=== PATIENT | female | born 1935 | race African-American/Black ===

== ENCOUNTER 2021-03-17 09:31 | Observation (INO) ==
[2021-03-17 11:02] LABS: Basophils % 0.2 % (0.0-0.8); Eosinophils % 0.1 % (0.00-10.9); Hematocrit 28.6 VOL% (35.7-47.0); Immature Granulocytes % 0.3 %; Immature Granulocytes Absolute 0.03 #; Lymphocytes # 0.7 10*3/uL (1.4-4.0); Lymphocytes % 7.5 % (21.3-54.2); Mean Corpuscular HGB Conc 31.5 GM/DL (32-36); Mean Corpuscular Volume 74.7 FL (87-102); Neutrophils % 86.9 % (38.7-73.9); Platelet Count 318 T/CUMM (130-400); Red Blood Count 3.83 MC/CUMM (3.8-5.5); Red Cell Distribution Width 17.1 % (9.3-17.3); White Blood Count 8.6 T/CUMM (4-12)
[2021-03-17 11:03] LABS: Bacteria,Urine Occasional /HPF (Few); Bilirubin,Urine Negative (Negative); Blood, Urine Negative (Negative); Glucose,Urine (UA) Negative (Negative); Ketones,Urine 5 mg/dL (Negative); Mucus,Urine Few /LPF (Occasional); Nitrite,Urine Negative (Negative); Protein,Urine 30 MG/DL; RBC,Urine 11 /HPF (0-4); Squamous Epithelial Cell,Urine Occasional /HPF (0-10); Urine Appearance CLOUDY (Clear); Urine Color Yellow (Yellow); Urine Specific Gravity 1.017 (1.001-1.035); Urine Urobilinogen < 2.0 EU/DL (<2.0)
[2021-03-17] MEDS ORDERED: cefTRIAXone 1,000 MG in SODIUM CHLORIDE 0.9% 100 ML IV STA (11:06)
[2021-03-17 11:33] LABS: Albumin 3.7 G/DL (3.4-5.0); Bilirubin,Total 0.6 MG/DL (0.20-1.00); Calcium 9.8 MG/DL (8.5-10.1); Osmolality,Calculated 284.4 MOS/KG (273-304); Potassium 4.4 MMOL/L (3.5-5.1); Total Protein 7.5 G/DL (6.4-8.2)
[2021-03-17] MEDS ORDERED: SODIUM CHLORIDE 0.9% 1,000 ML IV STA (11:38)
[2021-03-17] MEDS ORDERED: DEXTROSE 10% 250 ML BAG IV PRN (12:57)
[2021-03-17] MEDS ORDERED: ONDANSETRON 4 MG/2 ML VIAL IV PRN (12:57)
[2021-03-17] MEDS ORDERED: hydrALAZINE 20 MG/1 ML VIAL IV PRN (12:57)
[2021-03-17] MEDS ORDERED: GLUCAGON 1 MG VIAL IM PRN (12:57)
[2021-03-17] MEDS: SODIUM CHLORIDE 0.45% 1,000 ML IV SCH (19:03)
[2021-03-18] MEDS: SODIUM CHLORIDE 0.45% 1,000 ML IV SCH ×2 (02:41→12:30)
[2021-03-18 06:50] LABS: Basophils % 0.3 % (0.0-0.8); Eosinophils # 0.3 10*3/uL (0.0-0.87); Eosinophils % 3.1 % (0.00-10.9); Hematocrit 30.4 VOL% (35.7-47.0); Hemoglobin 9.4 GM/DL (12.0-16.0); Immature Granulocytes % 0.3 %; Immature Granulocytes Absolute 0.03 #; Lymphocytes # 1.2 10*3/uL (1.4-4.0); Lymphocytes % 13.2 % (21.3-54.2); Mean Corpuscular HGB Conc 30.9 GM/DL (32-36); Mean Corpuscular Volume 75.2 FL (87-102); Mean Platelet Volume 10.3 FL (9.6-12.0); Monocytes % 8.5 % (1.7-12.7); Neutrophils % 74.6 % (38.7-73.9); Platelet Count 287 T/CUMM (130-400); Red Blood Count 4.04 MC/CUMM (3.8-5.5); Red Cell Distribution Width 17.2 % (9.3-17.3); White Blood Count 9.2 T/CUMM (4-12)
[2021-03-18 07:09] LABS: Calcium 9.2 MG/DL (8.5-10.1); Osmolality,Calculated 284.3 MOS/KG (273-304); Potassium 3.9 MMOL/L (3.5-5.1)
[2021-03-18] MEDS ORDERED: cefTRIAXone 1,000 MG in SODIUM CHLORIDE 0.9% 100 ML IV SCH (09:00)
[2021-03-18] MEDS ORDERED: PANTOPRAZOLE 40 MG VIAL IV SCH (09:00)
[2021-03-18] MEDS ORDERED: FOSFOMYCIN 3 GM PACK PO ONE (11:21)
[2021-03-18 12:03] VITALS: BP 146/59
== END 2021-03-18 14:36 ==
LOC: N.ED 09:31 → INTOOBSV 12:57 → N.EDINP 12:57 → SUATTDRO 12:57 → N.EDINP 18:30 → N.5E 18:46
PROVIDERS: ADMIT Phlebology; ATTEND Hospitalist